=== PATIENT | female | born 2000 | race Caucasian/White ===

== ENCOUNTER 2023-10-22 10:26 | Emergency (ER) | payer BC ==
[~2023-10-22] VITALS: Ht 180.3 cm; Wt 94.3 kg
[2023-10-22] MEDS ORDERED: ALBUTEROL FS 2.5 MG/3 ML VIAL.NEB ONE (10:53)
[2023-10-22] MEDS ORDERED: predniSONE 20 MG TABLET ONE (10:54)
[2023-10-22] MEDS ORDERED: IPRATROPIUM NEB FS 0.5 MG/2.5 ML AMPUL.NEB ONE (10:54)
[2023-10-22] MEDS: ALBUTEROL FS 2.5 MG/3 ML VIAL.NEB CONTNEB ONE (10:57)
[2023-10-22] MEDS: IPRATROPIUM NEB FS 0.5 MG/2.5 ML AMPUL.NEB NEB ONE (10:57)
[2023-10-22 10:59] VITALS: O2SAT 96
[2023-10-22] MEDS: predniSONE 20 MG TABLET PO ONE (10:59)
[2023-10-22] MEDS ORDERED: PRED50TA PO (11:45)
[2023-10-22] MEDS ORDERED: ALBU18HF2 INH (11:45)
[2023-10-22 12:12] VITALS: BP 120/83; TEMP 98.1; O2SAT 98
== END 2023-10-22 12:12 | disposition home or self-care (01) ==
LOC: ER 10:35
DX: J45.909 Unspecified asthma, uncomplicated (principal)
CPT/HCPCS: 99285; 94644; J7512

== ENCOUNTER 2023-10-30 10:56 | Emergency (ER) | payer SELFPAY ==
[~2023-10-30] VITALS: Ht 180.3 cm; Wt 90.7 kg
[~2023-10-30 10:56] MED LIST: ALBU18HF2 INH; PRED50TA PO
[2023-10-30] MEDS: predniSONE 20 MG TABLET PO ONE (11:30)
[2023-10-30] MEDS ORDERED: ALBUTEROL FS 2.5 MG/3 ML VIAL.NEB ONE (11:46)
[2023-10-30] MEDS: IPRATROPIUM NEB FS 0.5 MG/2.5 ML AMPUL.NEB NEB ONE (11:51)
[2023-10-30] MEDS: ALBUTEROL FS 2.5 MG/3 ML VIAL.NEB CONTNEB ONE (11:51)
[2023-10-30 11:52] VITALS: O2SAT 97
[2023-10-30] MEDS ORDERED: PRED50TA PO (12:59)
[2023-10-30] MEDS ORDERED: ALBU18HF2 INH (12:59)
[2023-10-30 13:30] VITALS: BP 124/96; TEMP 98.6; O2SAT 94
== END 2023-10-30 13:31 | disposition home or self-care (01) ==
LOC: ER 11:00
DX: J45.909 Unspecified asthma, uncomplicated (principal)
CPT/HCPCS: 71045-TC; 94799-TC